=== PATIENT | male | born 1955 | race Caucasian/White ===

== ENCOUNTER 2021-09-20 11:50 | Inpatient (IN) | payer BC ==
[~2021-09-20] VITALS: Ht 180.3 cm; Wt 92.5 kg
[2021-09-20 13:42] LABS: CLARITY,URINE CLEAR (Clear); COLOR,URINE YELLOW (Yellow); GLUCOSE, URINE NEGATIVE (Neg); KETONES,URINE NEGATIVE (Neg); OCCULT BLOOD,URINE NEGATIVE (Neg); PROTEIN,URINE NEGATIVE (Neg); UA COLLECTION TYPE CLN CATCH MIDSTREAM
[2021-09-20 13:43] LABS: LEUKOCYTE ESTERASE ,URINE NEGATIVE (Neg); NITRITES, URINE NEGATIVE (Neg); UROBILINOGEN,URINE 0.2 E.U/dL (0.2-1.0)
[2021-09-20 14:03] LABS: BASOPHILS % (AUTO) 0.2 % (0-1); EOSINOPHILS % (AUTO) 0.2 % (0-6); HEMATOCRIT 44.7 % (42.0-52.0); HEMOGLOBIN 15.7 g/dl (14.0-17.9); LYMPHOCYTES # (AUTO) 0.7 X10'3 (1.1-4.8); LYMPHOCYTES % (AUTO) 6.3 % (21-51); MEAN CORPUSCULAR HEMOGLOBIN 33.3 PG (27.0-31.0); MEAN CORPUSCULAR HGB CONC 35.1 g/dL (33.0-36.5); MEAN CORPUSCULAR VOLUME 94.8 FL (78-98); MEAN PLATELET VOLUME 8.3 FL (7.4-10.4); MONOCYTES # (AUTO) 0.8 X10'3 (0-0.9); MONOCYTES % (AUTO) 7.2 % (2-12); NEUTROPHILS # (AUTO) 9.1 X10'3 (1.8-7.7); NEUTROPHILS % (AUTO) 86.1 % (42-75); PLATELET COUNT 197 X10'3 (140-440); RED BLOOD COUNT 4.71 X10'6 (4.70-6.10); RED CELL DISTRIBUTION WIDTH 12.8 % (11.5-14.5); WHITE BLOOD COUNT 10.5 X10'3 (4.5-11.0)
[2021-09-20 14:05] LABS: ALANINE AMINOTRANSFERASE 60 U/L (12-78); ALBUMIN 3.6 G/DL (3.4-5.0); ALBUMIN/GLOBULIN RATIO 0.9 (1.1-1.5); ALKALINE PHOSPHATASE 80 IU/L (46-116); ANION GAP 22 (8-16); BILIRUBIN,TOTAL 0.6 MG/DL (0.1-1.0); BLOOD UREA NITROGEN 92 MG/DL (7-18); BUN/CREATININE RATIO 6.3 (5.4-32.0); CALCIUM 8.6 MG/DL (8.5-10.1); CHLORIDE 95 MMOL/L (99-107); CREATININE 14.63 MG/DL (0.60-1.10); GLUCOSE 126 MG/DL (70-104); LIPASE 173 U/L (73-393); SODIUM 131 MMOL/L (135-145); TOTAL PROTEIN 7.7 G/DL (6.4-8.2); eGFR 3 ML/MIN
[2021-09-20 14:07] LABS: ASPARTATE AMINO TRANSFERASE 35 U/L (10-37); POTASSIUM 5.5 MMOL/L (3.5-5.1)
[2021-09-20 14:15] LABS: TOTAL CARBON DIOXIDE 14.3 MMOL/L (24-32)
[2021-09-20] MEDS ORDERED: LIDOcaine 2% 10ml TOPICAL JELLY (Urojet) MM ONE (19:25)
[2021-09-20 20:30] LABS: ABG BASE EXCESS -12.9 mmol/L (-2.0-2.0); ABG HCO3 11.4 mmol/L (22.0-26.0); ABG OXYGEN SATURATION 96.5 % (94-97); ABG PCO2 (T) 23.6 mmHg (35.0-48.0); ABG PO2 (T) 87.8 mmHg (75.0-100.0); ALLEN'S TEST POSITIVE; FCOHb 0.5 % (0.0-3.9); FMetHb 0.2 % (0.0-1.5); FO2Hb 95.8 % (94-97); PATIENT TEMPERATURE 36.7; TOTAL HEMOGLOBIN 15.7 G/dl (14.0-18.0)
[2021-09-20 20:50] LABS: PHOSPHORUS 8.7 MG/DL (2.3-4.5)
[2021-09-20] MEDS ORDERED: HYDROcodone/acetaminophen 5mg/325mg tablet PO ONE (20:55)
[2021-09-20] MEDS ORDERED: temazepam 15mg capsule PO PRN (21:00)
[2021-09-20] MEDS ORDERED: acetaminophen 325mg tablet PO PRN ×2 (22:00)
[2021-09-20] MEDS ORDERED: diphenhydrAMINE 50 mg/ml inj IV PRN (22:00)
[2021-09-20] MEDS ORDERED: diphenhydrAMINE 25mg capsule PO PRN (22:00)
[2021-09-20] MEDS ORDERED: HYDROmorphone inj. 0.5 MG/0.5 ML DISP.SYRIN IV PRN (22:00)
[2021-09-20] MEDS ORDERED: acetaminophen 650mg rectal suppository RC PRN (22:00)
[2021-09-20] MEDS ORDERED: magnesium hydroxide 30ml (MOM) UD suspension PO PRN (22:00)
[2021-09-20] MEDS ORDERED: morphine 2 MG/ML inj. syringe IV PRN ×2 (22:00)
[2021-09-20] MEDS ORDERED: HYDROcodone/acetaminophen 10/325mg tab PO PRN (22:00)
[2021-09-20] MEDS ORDERED: ondansetron/PF 4mg/2ml inj IV PRN (22:00)
[2021-09-20] MEDS ORDERED: bisacodyl 10mg suppository rectal RC PRN (22:00)
[2021-09-20] MEDS ORDERED: ondansetron 4mg rapidly disintigrating tab PO PRN (22:00)
[2021-09-20] MEDS ORDERED: mag hydrox/Alum hydrox/simeth 30ml oral suspension PO PRN (22:00)
[2021-09-20] MEDS ORDERED: hydrALAZINE 20mg/ml inj. IV PRN (22:05)
[2021-09-20 22:23] LABS: HEMOGLOBIN A1C 5.2 % (4.5-6.2)
[2021-09-20 22:34] LABS: CREATINE KINASE 196 U/L (39-308)
[2021-09-20] MEDS: normal saline 1000ml 1,000 ML IV SCH (23:01)
[2021-09-20 23:38] LABS: PARTIAL THROMBOPLASTIN TIME 30 SECONDS (22-32)
[2021-09-20 23:54] LABS: URINE AMPHETAMINE SCREEN NEGATIVE (Neg); URINE BARBITUATE SCREEN NEGATIVE (Neg); URINE BENZODIAZEPINES SCREEN NEGATIVE (Neg); URINE CANNABINOID SCREEN NEGATIVE (Neg); URINE COCAINE SCREEN NEGATIVE (Neg); URINE METHADONE SCREEN NEGATIVE (Neg); URINE OPIATE SCREEN NEGATIVE (Neg); URINE PHENCYCLIDINE SCREEN NEGATIVE (Neg)
[2021-09-21] MEDS: normal saline 1000ml 1,000 ML IV SCH ×2 (08:00→18:00)
[2021-09-21 08:01] LABS: BASOPHILS % (AUTO) 0.2 % (0-1); EOSINOPHILS % (AUTO) 0.4 % (0-6); HEMATOCRIT 45.4 % (42.0-52.0); HEMOGLOBIN 15.9 g/dl (14.0-17.9); LYMPHOCYTES # (AUTO) 0.6 X10'3 (1.1-4.8); LYMPHOCYTES % (AUTO) 6.7 % (21-51); MEAN CORPUSCULAR HGB CONC 35.1 g/dL (33.0-36.5); MEAN CORPUSCULAR VOLUME 94.1 FL (78-98); MONOCYTES # (AUTO) 0.9 X10'3 (0-0.9); MONOCYTES % (AUTO) 9.7 % (2-12); NEUTROPHILS # (AUTO) 7.4 X10'3 (1.8-7.7); PLATELET COUNT 212 X10'3 (140-440); RED BLOOD COUNT 4.82 X10'6 (4.70-6.10); WHITE BLOOD COUNT 8.9 X10'3 (4.5-11.0)
[2021-09-21 08:24] LABS: ALANINE AMINOTRANSFERASE 50 U/L (12-78); ALBUMIN 3.5 G/DL (3.4-5.0); ALBUMIN/GLOBULIN RATIO 0.9 (1.1-1.5); ALKALINE PHOSPHATASE 73 IU/L (46-116); ANION GAP 16 (8-16); ASPARTATE AMINO TRANSFERASE 18 U/L (10-37); BILIRUBIN,TOTAL 0.7 MG/DL (0.1-1.0); BLOOD UREA NITROGEN 53 MG/DL (7-18); BUN/CREATININE RATIO 10.2 (5.4-32.0); CALCIUM 8.9 MG/DL (8.5-10.1); CHLORIDE 109 MMOL/L (99-107); CHOL/HDL RATIO 4.2 (0.00-4.99); CHOLESTEROL 171 MG/DL (0-200); GLUCOSE 101 MG/DL (70-104); HDL CHOLESTEROL 41 MG/DL (35-60); LDL CHOLESTEROL 117 MG/DL (50-100); POTASSIUM 4.9 MMOL/L (3.5-5.1); SODIUM 142 MMOL/L (135-145); TOTAL CARBON DIOXIDE 17.4 MMOL/L (24-32); TOTAL PROTEIN 7.5 G/DL (6.4-8.2); TRIGLYCERIDES 69 MG/DL (20-135); eGFR 11 ML/MIN
[2021-09-21] MEDS: heparin, porcine 5000 units/ml vial SQ SCH ×2 (09:13→21:16)
[2021-09-21] MEDS: docusate sod 100mg capsule PO SCH ×2 (09:14→21:15)
[2021-09-21] MEDS: pantoprazole 40mg Tablet.DR PO SCH (09:14)
--- NOTE | 2021-09-21 09:57 | NUR ---
PAGER ID: [phone] MESSAGE: Dre Gallegos in ED 13 Urinary retention and BPH. Does this patient need to be NPO? I do not see anything ordered that requires him to remain NPO and he is requesting food. Renu SANDOVAL [id number]. New orders for heart healthy diet.
[2021-09-21] MEDS: CefTRIAXone/D5W-Rocephin 1gm 50 ML IV SCH (10:12)
[2021-09-21] MEDS: tamsulosin 0.4mg capsule PO SCH ×2 (10:13→21:15)
[2021-09-21] MEDS: amLODIPine 5mg tablet PO SCH (16:54)
[2021-09-21] MEDS: HYDROcodone/acetaminophen 5mg/325mg tablet PO PRN ×2 (16:55→21:26)
--- NOTE | 2021-09-21 18:40 | NUR ---
Problems reprioritized. Patient report given from Emergency Department, questions answered & plan of care reviewed with SUREKHA Toledo. Addendum: 09/22/21 at 0019 by Marichuy Pedersen RN Report was received from SUREKHA Toledo from ED13, pt will will be transferring to [facility] floor soon.
[2021-09-21 19:05] VITALS: BP 132/73
--- NOTE | 2021-09-21 19:05 | NUR ---
Patient arrived to room PCU 3024B from ED13 via [facility] with nurse Paris RN, Pt walk from [facility] to hospital bed in stable condition. Pt AAOX4, come in to ER on 09/20/21 with Dx: lower abdominal and back pain. Hx: HTN, Dyslipidemia, vertigo, CKD, Diverticulosis, BPH, chronic urinary retention. More than 3L of urine was noted in bladder, on room air, about 7L of urine output, love cath in place and patent with yellow urine noted. Denies any pain or discomfort at this time. Skin intact. MRSA swab completed. NS @ 100mL/hr infusing. No acute distress noted. Safety measures and comfort maintained. Call light within reach. Will continue to monitor.
[2021-09-21] MEDS: lactobacillus rhamnosus 10,000 MMU CELLS/CAPSULE PO SCH (21:15)
[2021-09-21 23:00] VITALS: BP 113/71
[2021-09-22 02:00] VITALS: BP 135/85
[2021-09-22] MEDS: normal saline 1000ml 1,000 ML IV SCH (04:00)
[2021-09-22 06:00] VITALS: BP 136/87
[2021-09-22 06:12] LABS: BASOPHILS % (AUTO) 0.4 % (0-1); EOSINOPHILS # (AUTO) 0.2 X10'3 (0-0.9); EOSINOPHILS % (AUTO) 2.1 % (0-6); HEMOGLOBIN 14.5 g/dl (14.0-17.9); LYMPHOCYTES # (AUTO) 0.7 X10'3 (1.1-4.8); LYMPHOCYTES % (AUTO) 9.8 % (21-51); MEAN CORPUSCULAR HEMOGLOBIN 33.2 PG (27.0-31.0); MEAN CORPUSCULAR HGB CONC 34.5 g/dL (33.0-36.5); MEAN CORPUSCULAR VOLUME 96.1 FL (78-98); MEAN PLATELET VOLUME 8.1 FL (7.4-10.4); MONOCYTES # (AUTO) 0.8 X10'3 (0-0.9); NEUTROPHILS # (AUTO) 5.8 X10'3 (1.8-7.7); NEUTROPHILS % (AUTO) 77.7 % (42-75); PLATELET COUNT 216 X10'3 (140-440); RED BLOOD COUNT 4.37 X10'6 (4.70-6.10); RED CELL DISTRIBUTION WIDTH 13.5 % (11.5-14.5); WHITE BLOOD COUNT 7.5 X10'3 (4.5-11.0)
[2021-09-22 06:24] LABS: ALANINE AMINOTRANSFERASE 42 U/L (12-78); ALBUMIN/GLOBULIN RATIO 0.8 (1.1-1.5); ALKALINE PHOSPHATASE 62 IU/L (46-116); ANION GAP 11 (8-16); ASPARTATE AMINO TRANSFERASE 18 U/L (10-37); BILIRUBIN,TOTAL 0.6 MG/DL (0.1-1.0); BLOOD UREA NITROGEN 21 MG/DL (7-18); CALCIUM 8.7 MG/DL (8.5-10.1); CHLORIDE 113 MMOL/L (99-107); GLUCOSE 100 MG/DL (70-104); POTASSIUM 4.2 MMOL/L (3.5-5.1); SODIUM 147 MMOL/L (135-145); TOTAL CARBON DIOXIDE 22.8 MMOL/L (24-32); TOTAL PROTEIN 6.8 G/DL (6.4-8.2); eGFR 47 ML/MIN
--- NOTE | 2021-09-22 06:37 | NUR ---
Patient in room PCU 3024. I have received report from SUREKHA VERAS, and had the opportunity to ask questions and assume patient care.
--- NOTE | 2021-09-22 06:38 | NUR ---
Problems reprioritized. Patient report given, questions answered & plan of care reviewed with SUREKHA Barroso.
[2021-09-22] MEDS: CefTRIAXone/D5W-Rocephin 1gm 50 ML IV SCH (08:27)
[2021-09-22] MEDS: heparin, porcine 5000 units/ml vial SQ SCH (08:32)
[2021-09-22] MEDS: amLODIPine 5mg tablet PO SCH (08:32)
[2021-09-22] MEDS: docusate sod 100mg capsule PO SCH (08:33)
[2021-09-22] MEDS: pantoprazole 40mg Tablet.DR PO SCH (08:33)
[2021-09-22] MEDS: lactobacillus rhamnosus 10,000 MMU CELLS/CAPSULE PO SCH (08:33)
[2021-09-22 11:00] VITALS: BP 119/71
--- NOTE | 2021-09-22 11:39 | NUR ---
PAGE SENT PAGER ID: [phone] MESSAGE: [id number], NICHOLAS SORTO, REMOVE SIERRA CATH BEFORE DISCHARGE? THANK YOU, MARTY Pruett [phone]
[2021-09-22] MEDS ORDERED: tamsulosin capsule PO (11:51)
[2021-09-22] MEDS ORDERED: NOR5T PO (11:51)
--- NOTE | 2021-09-22 13:49 | NUR ---
PT STABLE FOR DISCHARGE PER MD. BELONGINGS RETURNED TO PT. DISCHARGE AND FOLLOW UP INSTRUCTIONS REVIEWED WITH PT. PT WAS DISCHARGED WITH FC. PT WAS EDUCATED IN CLEANING AND CARE OF CATH. PT WAS GIVEN THE PHONE NUMBER OF DR. OLEA, UROLOGIST. PRESCRIPTIONS PHONED INTO [email or web address] ON [address]. PIV REMOVED WITH TIP INTACT. PT WAS WALKED TO PRIVATE VEHICLE BY HOSPITAL STAFF. PT WAS DISCHARGED TO HOME.
[2021-09-23 09:56] LABS: PSA, FREE 3.31 ng/mL
== END 2021-09-22 13:38 | disposition home or self-care (01) | DRG 690 ==
LOC: ER 13:01 → ED HOLD 22:03 → PCU 3S 09-21 18:45
PROVIDERS: ADMIT Family Medicine; ATTEND Family Medicine
PROC: 0T9B70Z Drainage of Bladder with Drainage Device, Via Natural or Artificial Opening (ICD-10-PCS; principal; 2021-09-20)
DX: N13.6 Pyonephrosis (principal); E87.1 Hypo-osmolality and hyponatremia; E87.2 Acidosis; I16.1 Hypertensive emergency; N13.8 Other obstructive and reflux uropathy; N40.1 Benign prostatic hyperplasia with lower urinary tract symptoms; E78.5 Hyperlipidemia, unspecified; E83.39 Other disorders of phosphorus metabolism; K57.30 Diverticulosis of large intestine without perforation or abscess without bleeding; E87.5 Hyperkalemia; N15.9 Renal tubulo-interstitial disease, unspecified; I12.9 Hypertensive chronic kidney disease with stage 1 through stage 4 chronic kidney disease, or unspecified chronic kidney disease; M54.9 Dorsalgia, unspecified; N17.9 Acute kidney failure, unspecified; N18.9 Chronic kidney disease, unspecified; N23 Unspecified renal colic; N32.0 Bladder-neck obstruction; R33.8 Other retention of urine; Z80.0 Family history of malignant neoplasm of digestive organs
CPT/HCPCS: 36415; 36600; 74176; 80053; 80061; 80305; 81003; 82550; 82803; 83036; 83605; 83690; 83735; 83880; 84100; 84153; 84154; 84443; 85018; 85025; 85610; 85730; 87040; 87081; 93005; 99285; G0378; J0360; J0696; J1644; J7030